=== PATIENT | male | born 1960 ===

== ENCOUNTER 2025-04-17 03:44 | Inpatient (IN) ==
[2025-04-17] MEDS: SODIUM CHLORIDE 0.9% 1,000 ML IV SCH (03:58)
[2025-04-17] MEDS: ALBUT/IPRATROP 3MG/0.5MG NEB 3 ML VIAL NEB STA (03:58)
--- NOTE | 2025-04-17 03:58 | Emergency Department Note ---
Impression & Plan Dyspnea, Hypoxia, Acute exacerbation of chronic obstructive pulmonary disease (COPD), Pneumonia ED Provider Note ED Provider Note NAME: KATELYN PADILLA AGE:65 SEX: Male : 1960 ARRIVES VIA: EMS INFORMANT: Patient ED PROVIDER(s): Ilsa Agrawal DO CHIEF COMPLAINT: shortness of breath HPI: This is a 65-year-old male presents to the emergency department via EMS due to worsening shortness of breath. EMS reports that upon their arrival patient's room air sats were 70% and he was working to breathe. Patient was given a DuoNeb treatment and then an additional albuterol neb. He was given IV Solu- Medrol additionally. He slowly had improvement once he was placed on oxygen via nasal cannula as they titrated up. They state by time of arrival here he was at 91%. They state patient and have been ill for approximately a week. Patient has had a cough, decreased appetite, did have fevers. Patient denies any overt vomiting or diarrhea. States with the coughing he does have intermittent chest pain. Patient states he has had pneumonia previously and this feels similar. PAST MEDICAL HISTORY:See Below PAST SURGICAL HISTORY:See Below FAMILY HISTORY:See Below SOCIAL HISTORY:See Below HOME MEDICATIONS:See Below ALLERGIES:See Below VITALS:See Below PHYSICAL EXAMINATION: GENERAL: alert, unwell appearing, well nourished, no distress, non-toxic EYE EXAM: normal conjunctiva, PERRL and EOM's grossly intact OROPHARYNX: no exudate, no erythema, lips, buccal mucosa, and tongue normal and mucous membranes are dry NECK: supple, no nuchal rigidity, no adenopathy, non-tender LUNGS: Decreased b/l to auscultation. Normal chest wall mechanics, no w/r/r, increased WOB HEART: no murmurs, S1 normal and S2 normal ABDOMEN: abdomen soft, non-tender, normo-active bowel sounds, no masses, no rebound or guarding. SKIN: no rashes, petechiae, orbruising UPPER EXTREMITIES: upper extremities are grossly normal. FROM, nml pulses b/l. LOWER EXTREMITIES: No pitting edema. FROM, nml pulses b/l. NEURO EXAM: Normal sensorium, cranial nerves II-XII grossly intact, normal speech, no facial droop,nogross weakness of arms, no gross weakness of legs. Gross sensation intact. No ataxia. Vital Signs: reviewed and remarkable Differential Diagnosis: pneumonia, bronchitis, COPD/Asthma exacerbation, pneumothorax, pulmonary embolism, congestive heart failure, acute coronary syndrome, as well as others were considered MEDICAL DECISION MAKING: This is a 65-year-old male presents emergency department after 1 week of illness 2 to 3 days of worsening shortness of breath. Patient noted to be significantly hypoxic upon arrival by EMS however was improved here with supplemental oxygen nebulizer treatments. Labs drawn and sent, IV established, EKG and CXR performed and interpreted at bedside, and patient placed on telemetry. Patient continued on supplemental oxygen, was started on gentle IV fluid hydration. After reviewing the chest x-ray, blood cultures, lactic acid, procalcitonin and patient given IV cefepime. Patient was given additional nebulizer treatment here. He was noted to have mild kalemia and hypomagnesemia which were repleted as well. I discussed with patient given extensive history of COPD and concern for multi lobar pneumonia and higher risk of complication, that additional inpatient evaluation and management would be advised. He and at bedside verbalized understanding and agreement. Case discussed with the hospitalist team for further inpatient evaluation. Patient had no fever on arrival here and no significant leukocytosis, was noted to have an elevated procalcitonin, lactic acid reassuring. Nasal swab had been obtained and sent for viral respiratory panel and was ultimately positive for enterovirus/rhinovirus. I suspect this was the illness he and his both initially had which then exacerbated his COPD and eventually led to evolving pneumonia. Consultation(s): 0520: Discussed with DC hospitalist team for additional evaluation and mgmt. ER Treatment Provided: See below Diagnostics Interpreted By Me: -ECG: Sinus tachycardia at 102, normal axis, normal intervals, no acute ST/T wave changes -Cardiac Monitoring: An order was placed for continuous cardiac monitoring. The monitor shows a rate of 96 with normal sinus rhythm. -Laboratory studies: As stated above and show below. -Imaging studies: cxr: b/l lower lobe infiltrates, no cm, no wide mediastinum Triage Nursing Note Reviewed Prior/Outside Records Reviewed Past Med/Surg History Problem List (Updated 04/17/25 @ 06:16 by Maryann Guido DO) Tobacco use disorder Pneumonia (Acute) Acute exacerbation of chronic obstructive pulmonary disease (COPD) (Acute) Hypoxia (Acute) Dyspnea (Acute) Mitral regurgitation Hypercholesterolemia Hypertension Coronary artery calcification seen on CAT scan Social History Smoking Status: Current every day smoker Tobacco Type: Cigarettes Feels Safe at Home: Yes Home Meds Home Medications Medication Instructions Recorded Confirmed baclofen 10 mg tablet 20 mg PO TID 06/03/24 bupropion HCl 150 mg tablet,12 hr 150 mg PO BID 06/03/24 sustained-release calcium carbonate 400 mg PO BID PRN 06/03/24 cyanocobalamin (vitamin B-12) 500 500 mcg PO DAILY 06/03/24 mcg tablet ferrous sulfate 325 mg (65 mg 325 mg PO TID 06/03/24 iron) tablet finasteride 5 mg tablet 5 mg PO DAILY 06/03/24 gabapentin 600 mg tablet 600 mg PO TID 06/03/24 guaifenesin 200 mg tablet 200 mg PO BID 06/03/24 nicotine 21 mg/24 hr daily 1 patch transdermal DAILY 06/03/24 transdermal patch omeprazole 20 mg tablet,delayed 20 mg PO BID 06/03/24 release simvastatin 80 mg tablet 40 mg PO DAILY 06/03/24 tiotropium 2.5 mcg-olodaterol 2.5 2 puff inhalation DAILY 06/03/24 mcg/actuation mist for inhalation Results & Data (ED) Vital Signs Vital Signs - 24 hr 04/17/25 03:37 04/17/25 03:37 04/17/25 03:37 Temperature 36.8 C Temperature Source Oral Pulse Rate 101 H Pulse Rate [Right Finger] Pulse Rhythm Regular Pulse Rhythm [Right Finger] Pulse Strength Normal Pulse Strength [Right Finger] Respiratory Rate 21 Respiratory Effort / Characteristics Spontaneous Non-Labored Spontaneous Respiratory Depth Normal Normal Respiratory Pattern Regular Regular Blood Pressure 138/81 Blood Pressure [Right Arm] Blood Pressure Mean 100 Blood Pressure Mean [Right Arm] Blood Pressure Position Lying Blood Pressure Position [Right Arm] Pulse Oximetry 88 L Oxygen Delivery Method Nasal Cannula Nasal Cannula Nasal Cannula Oxygen Flow Rate 8 8 8 Sepsis Recent Fever Within 48 Hours No Sepsis New/Unexplained Change in Mental Status N/A Sepsis Action Taken by Nursing MD Previously Notified 04/17/25 03:37 04/17/25 03:54 04/17/25 04:01 Temperature Temperature Source Pulse Rate 100 H 99 H Pulse Rate [Right Finger] 101 H Pulse Rhythm Pulse Rhythm [Right Finger] Regular Pulse Strength Pulse Strength [Right Finger] Normal Respiratory Rate 21 20 Respiratory Effort / Characteristics Non-Labored Spontaneous Respiratory Depth Normal Respiratory Pattern Regular Blood Pressure Blood Pressure [Right Arm] Blood Pressure Mean Blood Pressure Mean [Right Arm] Blood Pressure Position Blood Pressure Position [Right Arm] Pulse Oximetry 88 L Oxygen Delivery Method Nasal Cannula Oxygen Flow Rate 8 Sepsis Recent Fever Within 48 Hours Sepsis New/Unexplained Change in Mental Status Sepsis Action Taken by Nursing 04/17/25 05:59 Temperature Temperature Source Pulse Rate Pulse Rate [Right Finger] 97 H Pulse Rhythm Pulse Rhythm [Right Finger] Regular Pulse Strength Pulse Strength [Right Finger] Normal Respiratory Rate 18 Respiratory Effort / Characteristics Non-Labored Spontaneous Respiratory Depth Normal Respiratory Pattern Regular Blood Pressure Blood Pressure [Right Arm] 137/77 Blood Pressure Mean Blood Pressure Mean [Right Arm] 97 Blood Pressure Position Blood Pressure Position [Right Arm] Lying Pulse Oximetry 92 Oxygen Delivery Method Oxymask Oxygen Flow Rate 8 Sepsis Recent Fever Within 48 Hours Sepsis New/Unexplained Change in Mental Status Sepsis Action Taken by Nursing Laboratory Data 04/17/25 03:54 04/17/25 03:54 Lab Results 04/17/25 04/17/25 04/17/25 Range/Units 03:51 03:54 03:59 WBC 5.79 (4.8-10.8) K/ul RBC 3.88 L (4.70-6.10) M/uL Hgb 12.4 L (14.0-18.0) g/dL Hct 35.4 L (42.0-52.0) % MCV 91.2 (80.0-100.0) fL MCH 32.0 (25.0-34.0) pg MCHC 35.0 (32.0-36.0) g/dL RDW Std Deviation 40.4 (36.4-46.3) fL RDW Coeff of Km 12.2 (11.5-14.5) % Plt Count 174 (130-400) K/uL MPV 9.4 (9.4-12.4) fL Immature Gran % (Auto) 0.5 % Neut % (Auto) 91.0 % Lymph % (Auto) 4.8 % [place] % (Auto) 2.8 % Eos % (Auto) 0.0 % Baso % (Auto) 0.9 % Neut # (Auto) 5.27 (1.40-6.50) K/uL Lymph # (Auto) 0.28 L (1.20-3.40) K/uL [place] # (Auto) 0.16 (0.11-0.59) K/uL Eos # (Auto) 0.00 (0.00-0.50) K/uL Baso # (Auto) 0.05 (0.00-0.20) K/uL Immature Gran # (Auto) 0.03 (0.01-0.20) K/uL Toxic Granulation 1+ Dohle Bodies 1+ Echinocytes 2+ VBG pH 7.45 H (7.36-7.41) VBG pCO2 42 (38-50) mmHg VBG pO2 21 mmHg VBG HCO3 29 mmol/L VBG O2 Saturation < 60.0 % VBG Base Excess 4.7 mEq/L Sodium 131 L (136-145) mmol/L Potassium 3.0 L (3.5-5.1) mmol/L Chloride 94 L (98-107) mmol/L Carbon Dioxide 27 (21-32) mmol/L Anion Gap 10 (3-11) BUN 24 H (6-23) mg/dl Creatinine 1.12 (0.6-1.4) mg/dl Est Cr Clr Drug Dosing Not Reportable eGFR 72.00 BUN/Creatinine Ratio 21.4 H (10-20) Glucose 131 H (70-99(Fasting)) mg/dl Lactate (0.4-2.0) mmol/L Calcium 8.4 L (8.6-10.3) mg/dl Magnesium 1.6 L (1.7-2.4) mg/dl Total Bilirubin 1.3 H (0.2-1.0) mg/dl AST 24 (13-39) U/L ALT 15 (7-52) U/L Alkaline Phosphatase 41 (34-104) U/L Troponin I High Sens 15.1 (0-20) pg/ml Total Protein 5.9 L (6.0-8.3) gm/dl Albumin 3.2 L (3.4-5.0) gm/dl Globulin 2.7 (2.5-4.0) gm/dl Albumin/Globulin Ratio 1.2 (0.9-2) Lipase 21 (11-82) U/L Procalcitonin (0-0.5) ng/ml Adenovirus (PCR) Not Detected (NotDetected) B. pertussis DNA (PCR) Not Detected (NotDetected) B.parapertussis DNA PCR Not Detected (NotDetected) C. pneumoniae DNA (PCR) Not Detected (NotDetected) Coronavirus OC43 (PCR) Not Detected (NotDetected) Coronavirus HKU1 (PCR) Not Detected (NotDetected) Coronavirus 229E (PCR) Not Detected (NotDetected) SARS-CoV-2 (PCR) Not Detected (NotDetected) Coronavirus NL63 (PCR) Not Detected (NotDetected) Human Metapneumovir PCR Not Detected (NotDetected) Influenza Type A (PCR) Not Detected (NotDetected) Influenza Type B (PCR) Not Detected (NotDetected) M. pneumoniae (PCR) Not Detected (NotDetected) Parainfluenza 1 (PCR) Not Detected (NotDetected) Parainfluenza 2 (PCR) Not Detected (NotDetected) Parainfluenza 3 (PCR) Not Detected (NotDetected) Parainfluenza 4 (PCR) Not Detected (NotDetected) RSV (PCR) Not Detected (NotDetected) Entero/Rhino (PCR) DETECTED A (NotDetected) 04/17/25 04/17/25 Range/Units 04:21 04:44 WBC (4.8-10.8) K/ul RBC (4.70-6.10) M/uL Hgb (14.0-18.0) g/dL Hct (42.0-52.0) % MCV (80.0-100.0) fL MCH (25.0-34.0) pg MCHC (32.0-36.0) g/dL RDW Std Deviation (36.4-46.3) fL RDW Coeff of Km (11.5-14.5) % Plt Count (130-400) K/uL MPV (9.4-12.4) fL Immature Gran % (Auto) % Neut % (Auto) % Lymph % (Auto) % [place] % (Auto) % Eos % (Auto) % Baso % (Auto) % Neut # (Auto) (1.40-6.50) K/uL Lymph # (Auto) (1.20-3.40) K/uL [place] # (Auto) (0.11-0.59) K/uL Eos # (Auto) (0.00-0.50) K/uL Baso # (Auto) (0.00-0.20) K/uL Immature Gran # (Auto) (0.01-0.20) K/uL Toxic Granulation Dohle Bodies Echinocytes VBG pH (7.36-7.41) VBG pCO2 (38-50) mmHg VBG pO2 mmHg VBG HCO3 mmol/L VBG O2 Saturation % VBG Base Excess mEq/L Sodium (136-145) mmol/L Potassium (3.5-5.1) mmol/L Chloride (98-107) mmol/L Carbon Dioxide (21-32) mmol/L Anion Gap (3-11) BUN (6-23) mg/dl Creatinine (0.6-1.4) mg/dl Est Cr Clr Drug Dosing eGFR BUN/Creatinine Ratio (10-20) Glucose (70-99(Fasting)) mg/dl Lactate 1.6 (0.4-2.0) mmol/L Calcium (8.6-10.3) mg/dl Magnesium (1.7-2.4) mg/dl Total Bilirubin (0.2-1.0) mg/dl AST (13-39) U/L ALT (7-52) U/L Alkaline Phosphatase (34-104) U/L Troponin I High Sens (0-20) pg/ml Total Protein (6.0-8.3) gm/dl Albumin (3.4-5.0) gm/dl Globulin (2.5-4.0) gm/dl Albumin/Globulin Ratio (0.9-2) Lipase (11-82) U/L Procalcitonin 12.40 H (0-0.5) ng/ml Adenovirus (PCR) (NotDetected) B. pertussis DNA (PCR) (NotDetected) B.parapertussis DNA PCR (NotDetected) C. pneumoniae DNA (PCR) (NotDetected) Coronavirus OC43 (PCR) (NotDetected) Coronavirus HKU1 (PCR) (NotDetected) Coronavirus 229E (PCR) (NotDetected) SARS-CoV-2 (PCR) (NotDetected) Coronavirus NL63 (PCR) (NotDetected) Human Metapneumovir PCR (NotDetected) Influenza Type A (PCR) (NotDetected) Influenza Type B (PCR) (NotDetected) M. pneumoniae (PCR) (NotDetected) Parainfluenza 1 (PCR) (NotDetected) Parainfluenza 2 (PCR) (NotDetected) Parainfluenza 3 (PCR) (NotDetected) Parainfluenza 4 (PCR) (NotDetected) RSV (PCR) (NotDetected) Entero/Rhino (PCR) (NotDetected) Administered Medications Sodium Chloride (Nss) 1,000 mls @ 125 mls/hr IV .Q8H SKIP Stop: 04/20/25 03:59 Last Admin: 04/17/25 03:58 Dose: 125 mls/hr Documented By: YANDEL Potassium Chloride (K Asher / Wtr) 10 meq in 100 mls @ 100 mls/hr IV Q1H SKIP Stop: 04/17/25 09:59 Last Admin: 04/17/25 06:12 Dose: 100 mls/hr Documented By: SIDNEY Magnesium Sulfate/Dextrose (Magnesium Sulfate / D5w) 1 gm in 100 mls @ 50 mls/hr IV ONE ONE Stop: 04/17/25 07:54 Last Admin: 04/17/25 06:30 Dose: 50 mls/hr Documented By: SIDNEY Discontinued Medications Acetaminophen (Acetaminophen 325 Mg Tab) 650 mg PO NOW STA Stop: 04/17/25 06:27 Last Admin: 04/17/25 06:47 Dose: Not Given Documented By: SIDNEY Albuterol (Albut/Ipratrop 3mg/0.5mg Neb 3 Ml Vial) 3 ml NEB NOW STA; Protocol Stop: 04/17/25 03:55 Last Admin: 04/17/25 03:58 Dose: 3 ml Documented By: YANDEL Cefepime HCl (Maxipime 2000mg) 2,000 mg in 20 mls @ 5 mls/min IV NOW STA; Protocol Stop: 04/17/25 04:32 Last Admin: 04/17/25 04:53 Dose: 5 mls/min Documented By: SIDNEY Magnesium Sulfate/Dextrose (Magnesium Sulfate / D5w) 1 gm in 100 mls @ 100 mls/hr IV NOW STA Stop: 04/17/25 05:53 Last Admin: 04/17/25 05:19 Dose: 100 mls/hr Documented By: [facility] Methylprednisolone (Methylprednisolone 125 Mg/2 Ml Vial) 125 mg IV NOW STA Stop: 04/17/25 05:56 Last Admin: 04/17/25 06:12 Dose: 125 mg Documented By: [facility] Ondansetron HCl (Ondansetron Inj 2 Mg/Ml 2 Ml Vial) 4 mg IV NOW STA Stop: 04/17/25 06:27 Last Admin: 04/17/25 06:30 Dose: 4 mg Documented By: [facility] Potassium Chloride (Potassium Chloride Crtab 20 Meq Tabcr) 40 meq PO NOW STA Stop: 04/17/25 04:55 Last Admin: 04/17/25 05:48 Dose: Not Given Documented By: [facility] Imaging Data Radiologist's Impression: Chest X-Ray 04/17/25 03:54 EXAM: XR chest 1V portable CLINICAL HISTORY: Dyspnea TECHNIQUE: An X-ray image of the chest is obtained in AP projection. COMPARISON: No prior studies are available for comparison. FINDINGS: Pulmonary Parenchyma: An ill-defined opacity involving the right middle and bilateral lower lung zones. Mildly obscured right costophrenic angle. No evidence of left pleural effusion or pleural thickening. Heart and Mediastinum: Heart size and shape are normal. No mediastinal widening or masses. No hilar or mediastinal lymphadenopathy. Bony Thorax: The bony thorax appears intact without fractures or deformities. Soft Tissues: Soft tissues overlying the chest wall are unremarkable. IMPRESSION: An ill-defined opacity involving the right middle and bilateral lower lung zones, likely secondary to an inflammatory nature. Further clinical correlation is recommended. Mildly obscured right costophrenic angle, likely secondary to tmild effusion. Electronically signed by Stoney Styles 04-17-2025 05:04 AM Discharge Plan Visit Data Chief Complaint: Shortness of Breath/Dyspnea Stated Complaint: SOB ED Provider: Ilsa Agrawal Discharge Problem: Dyspnea, Hypoxia, Acute exacerbation of chronic obstructive pulmonary disease (COPD), Pneumonia Patient Disposition: Being Evaluated by Hospitalist Condition: Fair Forms Stand Alone Forms: [facility] [place] Prescriptions Prescriptions: No Action baclofen 10 mg tablet 20 mg PO TID bupropion HCl 150 mg tablet sustained-release 12 hr 150 mg PO BID calcium carbonate 200 mg calcium (500 mg) tablet,chewable 400 mg PO BID PRN cyanocobalamin (vitamin B-12) 500 mcg tablet 500 mcg PO DAILY ferrous sulfate 325 mg (65 mg iron) tablet 325 mg PO TID finasteride 5 mg tablet 5 mg PO DAILY gabapentin 600 mg tablet 600 mg PO TID guaifenesin 200 mg tablet 200 mg PO BID nicotine 21 mg/24 hr patch 24 hour 1 patch transdermal DAILY omeprazole 20 mg tablet,delayed release (DR/EC) 20 mg PO BID simvastatin 80 mg tablet 40 mg PO DAILY tiotropium-olodaterol 2.5-2.5 mcg/actuation mist 2 puff inhalation DAILY Referrals Referrals: Martine Stacy D.O. [Primary Care Provider] -
[2025-04-17 04:01] LABS: Base Excess VBG 4.7 mEq/L; HCO3 VBG 29 mmol/L; Oxygen Saturation VBG < 60.0 %; PCO2 VBG 42 mmHg (38-50); PO2 VBG 21 mmHg; pH VBG 7.45 (7.36-7.41)
[2025-04-17 04:22] LABS: Alanine Aminotransferase 15 U/L (7-52); Albumin Globulin Ratio 1.2 (0.9-2); Albumin Level 3.2 gm/dl (3.4-5.0); Alkaline Phosphatase 41 U/L (34-104); Anion Gap 10 (3-11); Bilirubin,Total 1.3 mg/dl (0.2-1.0); Blood Urea Nitrogen 24 mg/dl (6-23); Calcium 8.4 mg/dl (8.6-10.3); Carbon Dioxide 27 mmol/L (21-32); Chloride 94 mmol/L (98-107); Globulin 2.7 gm/dl (2.5-4.0); Glucose 131 mg/dl (70-99(Fasting)); Lipase 21 U/L (11-82); Magnesium 1.6 mg/dl (1.7-2.4); Potassium 3.0 mmol/L (3.5-5.1); Sodium 131 mmol/L (136-145); Total Protein 5.9 gm/dl (6.0-8.3)
[2025-04-17 04:36] LABS: Dohle Bodies 1+; Hematocrit (blood only) 35.4 % (42.0-52.0); Hemoglobin 12.4 g/dL (14.0-18.0); Immature Granulocytes # (auto) 0.03 K/uL (0.01-0.20); Immature Granulocytes % (auto) 0.5 %; Mean Corpuscular Hemoglobin 32.0 pg (25.0-34.0); Mean Corpuscular Volume 91.2 fL (80.0-100.0); Platelet Count 174 K/uL (130-400); RDW Standard Deviation 40.4 fL (36.4-46.3); Red Blood Count 3.88 M/uL (4.70-6.10); Toxic Granulation 1+; White Blood Count 5.79 K/ul (4.8-10.8)
[2025-04-17] MEDS: CEFEPIME 2000MG 2,000 MG/20 ML SYR IV STA (04:53)
[2025-04-17 05:01] LABS: Chlamydia pneumoniae PCR Not Detected (NotDetected); Coronavirus 229E PCR Not Detected (NotDetected); Coronavirus CoV-2 (COVID19)PCR Not Detected (NotDetected); Coronavirus HKU1 PCR Not Detected (NotDetected); Coronavirus NL63 PCR Not Detected (NotDetected); Coronavirus OC43PCR Not Detected (NotDetected); Human Metapneumovirus PCR Not Detected (NotDetected); Parainfluenza Virus 1 PCR Not Detected (NotDetected); Parainfluenza Virus 2 PCR Not Detected (NotDetected); Parainfluenza Virus 3 PCR Not Detected (NotDetected); Parainfluenza Virus 4 PCR Not Detected (NotDetected); Respiratory Syncytial VirusPCR Not Detected (NotDetected); Rhinovirus/Enterovirus PCR DETECTED (NotDetected)
--- NOTE | 2025-04-17 05:06 | XRay Report ---
EXAM: XR chest 1V portable CLINICAL HISTORY: Dyspnea TECHNIQUE: An X-ray image of the chest is obtained in AP projection. COMPARISON: No prior studies are available for comparison. FINDINGS: Pulmonary Parenchyma: An ill-defined opacity involving the right middle and bilateral lower lung zones. Mildly obscured right costophrenic angle. No evidence of left pleural effusion or pleural thickening. Heart and Mediastinum: Heart size and shape are normal. No mediastinal widening or masses. No hilar or mediastinal lymphadenopathy. Bony Thorax: The bony thorax appears intact without fractures or deformities. Soft Tissues: Soft tissues overlying the chest wall are unremarkable. IMPRESSION: An ill-defined opacity involving the right middle and bilateral lower lung zones, likely secondary to an inflammatory nature. Further clinical correlation is recommended. Mildly obscured right costophrenic angle, likely secondary to tmild effusion. Electronically signed by Stoney Styles 04-17-2025 05:04 AM
[2025-04-17] MEDS: MAGNESIUM SULFATE / D5W 1 GM/100 ML BAG IV STA (05:19)
--- NOTE | 2025-04-17 05:36 | History & Physical Report ---
Date of Service April 17, 2025 Assessment & Plan (1) Acute exacerbation of chronic obstructive pulmonary disease (COPD): (2) Pneumonia: (3) Hypertension: (4) Tobacco use disorder: Plan Pt is a 65 yo male with a past med hx of COPD not on oxygen at baseline, YASIR (per records, not on CPAP), HTN and CAD who presents to the hospital on 04/17 for AHRF in the setting of 1 week of illness and COPD exac. #AHRF in the setting of pneumonia + Rhinovirus + likely COPD exac - CXR; "An ill-defined opacity involving the right middle and bilateral lower lung zones, likely secondary to an inflammatory nature. Further clinical correlation is recommended. Mildly obscured right costophrenic angle, likely secondary to tmild effusion." - hx COPD noted - biofire + for rhinovirus - procal 12 on admission, no white count - blood cx pending - duonebs lonny q6h - will tx pna with zosyn and azithromycin (given cefepime in the ED) - loaded with solumedrol 125mg IV, continue as solumedrol 40mg IV BID #Hypokalemia - will replete IV given desats off the oxymask on admission, 40mg IV given initially - mag repleted 2gm IV also - consider further repletion after K-riders finished #Chest pain #Hx CAD - continue statin - chest pain is pleuritic and he has been coughing a lot, R lower intercostals main area of pain - EKG ordered - initial trop negative (15), repeat pending - tylenol for pain #Tobacco dependence - normally smokes 2 ppd, down to 1/2 ppd this past week - will give nicotine patch Hold gabapentin as this may be sedating. Will continue chronic medications o therwise. Diet; NPO for now given desaturations while off the mask and potential for escalation to bipap VTE ppx: lovenox SQ History of Present Illness Chief Complaint: AHRF, COPD exac Primary Care Provider: Martine León Pt is a 65 yo male with a past med hx of COPD not on oxygen at baseline, YASIR (per records, not on CPAP), HTN and CAD who presents to the hospital on 04/17 for AHRF in the setting of 1 week of illness and COPD exac. Pt here with his . Pt fatigued appearing but awake and alert. He states he got sick 1 week ago. His was sick first and then he got sick afterwards. He states it started with cough, congestion with rhinorrhea, nausea, diarrhea, and shortness of breath. Pt states he had a similar episode as today about 1 year ago, which was less severe and he was treated outpatient by the [facility] for pneumo sukhdev. His states when he was sleeping tonight he was making noises "like a dog was upchucking" and so she told him he needed to come to the hospital and get evaluated and called 911. Pt states that he has some pain between his lower ribs which is worse with deep breaths. Last episode of diarrhea was >24 hrs ago. SOB has improved some with therapies given in the ED. No hx PR or CVA per pt. No alcohol or drug use. He does smoke 2 ppd but the last 1 week as he has been sick he has cut back to 1/2 ppd. Allergies Allergy/AdvReac Type Severity Reaction Status Date / Time No Known Allergies Allergy Unverified 04/17/25 09:12 Home Medications Medication Instructions Recorded Confirmed Type baclofen 10 mg tablet 20 mg PO TID 06/03/24 History bupropion HCl 150 mg tablet,12 hr 150 mg PO BID 06/03/24 History sustained-release calcium carbonate 400 mg PO BID PRN 06/03/24 History cyanocobalamin (vitamin B-12) 500 500 mcg PO DAILY 06/03/24 History mcg tablet ferrous sulfate 325 mg (65 mg 325 mg PO TID 06/03/24 History iron) tablet finasteride 5 mg tablet 5 mg PO DAILY 06/03/24 History gabapentin 600 mg tablet 600 mg PO TID 06/03/24 History guaifenesin 200 mg tablet 200 mg PO BID 06/03/24 History nicotine 21 mg/24 hr daily 1 patch transdermal DAILY 06/03/24 History transdermal patch omeprazole 20 mg tablet,delayed 20 mg PO BID 06/03/24 History release simvastatin 80 mg tablet 40 mg PO DAILY 06/03/24 History tiotropium 2.5 mcg-olodaterol 2.5 2 puff inhalation DAILY 06/03/24 History mcg/actuation mist for inhalation Past Med/Surg History Problem List (Updated 04/17/25 @ 06:16 by Maryann Guido DO) Tobacco use disorder Pneumonia (Acute) Acute exacerbation of chronic obstructive pulmonary disease (COPD) (Acute) Hypoxia (Acute) Dyspnea (Acute) Mitral regurgitation Hypercholesterolemia Hypertension Coronary artery calcification seen on CAT scan Social History Smoking Status: Current every day smoker Tobacco Type: Cigarettes Cigarettes Per Day: 1 pack per day; Hx Alcohol Use: No Hx Substance Use: No Preferred Language: Mongolian [employer] Machine Operator Required: No Beliefs That Will Affect Care: None Current Living Situation: Spouse Other Information That Helps Us Care for You: No Feels Safe at Home: Yes Safety Concerns: Feels Safe At This Time Review of Systems Review of Systems: Per HPI. Physical Exam Physical Exam: General: Alert and oriented, fatigued appearing with increased resp effort HEENT: Normocephalic, Cardio: Heart rate in the 90-100s at time of exam, Resp: Quite poor air movement in bilateral lungs with lower lobe crackles, particularly on the R side GI: Soft and nontender, nondistended, Skin: Warm, pink, dry, Results & Data Results & Data Vital Signs (Past 12 Hours) Vital Signs Temp Pulse Pulse Resp BP Pulse Ox O2 Del Method 04/17/25 04:01 99 H 04/17/25 03:54 100 H 20 88 L Nasal Cannula 04/17/25 03:37 101 H 21 04/17/25 03:37 Nasal Cannula 04/17/25 03:37 36.8 C 101 H 21 138/81 88 L Nasal Cannula 04/17/25 03:37 Nasal Cannula O2 Flow Rate 04/17/25 04:01 04/17/25 03:54 8 04/17/25 03:37 04/17/25 03:37 8 04/17/25 03:37 8 04/17/25 03:37 8 Supervising Physician Co-Signing Physician Notes Attending addendum: I have physically seen this patient, have supervised the medical residents activities, and agree with the H&P unless as otherwise noted. Assessment and Plan: The patient is a 65-year-old male with past medical history including COPD, YASIR not on CPAP, hypertension, and CAD. He presents to the hospital on 04/17 with shortness of breath, dyspnea on exertion, found to be significantly hypoxic in the emergency department, requiring 8 L nasal cannula oxygen to reach pulse ox of 88%. Respiratory bio fire test positive for rhinovirus. In the ED patient received follow-up: Normal saline at 125 mL/h, magnesium 1 g IV, DuoNeb x 1, cefepime 2 g IV, Klor-Con 40 mEq p.o. Acute respiratory failure with hypoxia/COPD exacerbation/pneumonia/rhinovirus infection- Bio Twonq test positive for rhinovirus Duonebs every 4 hours while awake and every 2 hours when necessary. Zosyn 4.5 g IV every 8 hours Azithromycin 5 mg IV every 24 hours Solu-Medrol 125 mg IV now, 40 mg IV twice daily Follow-up sputum Gram stain culture Presently on nasal cannula 8 L to reach pulse ox of 88% Taper oxygen as symptoms improve Hypokalemia/hypomagnesemia- Potassium 3.0, magnesium 1.6 Magnesium sulfate 2 g IV, potassium chloride 40 mEq IV Recheck laboratories in a.m. CAD/hypertension/mitral regurgitation/hyperlipidemia- Continue simvastatin Initial troponin negative The patient will be admitted to telemetry for serial cardiac enzymes, serial EKG's, cardiac rhythm monitoring and a 2-D echocardiogram with Dopplers. Tobacco dependence- Continue patch Cessation Counseling Psychiatric- Continue bupropion Hold gabapentin Resident Activity Tracking Resident Involvement: Resident Care Provided Care Provided: Adult Hospital Medicine
[2025-04-17] MEDS: POTASSIUM CHLORIDE CRTAB 20 MEQ TABCR PO STA (05:48)
[2025-04-17] MEDS: POTASSIUM CHLORIDE / WTR 10 MEQ/100 ML PLCT IV SCH (06:12)
[2025-04-17] MEDS: MAGNESIUM SULFATE / D5W 1 GM/100 ML BAG IV ONE (06:30)
[2025-04-17] MEDS: ONDANSETRON INJ 2 MG/ML 2 ML VIAL IV STA (06:30)
[2025-04-17] MEDS: ACETAMINOPHEN 325 MG TAB PO STA (06:47)
[2025-04-17] MEDS ORDERED: POLYETHYLENE (MIRALAX) 17 GM PACK PO PRN (08:25)
[2025-04-17] MEDS ORDERED: ONDANSETRON INJ 2 MG/ML 2 ML VIAL IV PRN (08:25)
[2025-04-17] MEDS: ALBUT/IPRATROP 3MG/0.5MG NEB 3 ML VIAL INH SCH (09:31)
[2025-04-17] MEDS: AZITHROMYCIN 250 MG TAB PO SCH (10:03)
[2025-04-17] MEDS: NICOTINE 21 MG/24 HR TDSY TD SCH (10:03)
[2025-04-17] MEDS: SIMVASTATIN 40 MG TAB PO SCH (10:03)
[2025-04-17] MEDS: ENOXAPARIN INJ 40 MG/0.4 ML SYR SQ SCH (10:04)
[2025-04-17] MEDS: PIPERACILLIN/TAZOBACTAM 4.5 GM/100 ML BAG IV SCH (10:37)
--- NOTE | 2025-04-17 13:19 | History & Physical Report ---
Date of Service April 17, 2025 Assessment & Plan Admission and Anticipated Discharge Date Admission Date: April 17, 2025 History of Present Illness Primary Care Provider: Martine León Allergies Allergy/AdvReac Type Severity Reaction Status Date / Time No Known Allergies Allergy Unverified 04/17/25 09:12 Home Medications Medication Instructions Recorded Confirmed Type baclofen 10 mg tablet 20 mg PO TID 06/03/24 History bupropion HCl 150 mg tablet,12 hr 150 mg PO BID 06/03/24 History sustained-release calcium carbonate 400 mg PO BID PRN 06/03/24 History cyanocobalamin (vitamin B-12) 500 500 mcg PO DAILY 06/03/24 History mcg tablet ferrous sulfate 325 mg (65 mg 325 mg PO TID 06/03/24 History iron) tablet finasteride 5 mg tablet 5 mg PO DAILY 06/03/24 History gabapentin 600 mg tablet 600 mg PO TID 06/03/24 History guaifenesin 200 mg tablet 200 mg PO BID 06/03/24 History nicotine 21 mg/24 hr daily 1 patch transdermal DAILY 06/03/24 History transdermal patch omeprazole 20 mg tablet,delayed 20 mg PO BID 06/03/24 History release simvastatin 80 mg tablet 40 mg PO DAILY 06/03/24 History tiotropium 2.5 mcg-olodaterol 2.5 2 puff inhalation DAILY 06/03/24 History mcg/actuation mist for inhalation Past Med/Surg History Problem List (Updated 04/17/25 @ 06:16 by Maryann Guido DO) Tobacco use disorder Pneumonia (Acute) Acute exacerbation of chronic obstructive pulmonary disease (COPD) (Acute) Hypoxia (Acute) Dyspnea (Acute) Mitral regurgitation Hypercholesterolemia Hypertension Coronary artery calcification seen on CAT scan Social History Smoking Status: Current every day smoker Tobacco Type: Cigarettes Feels Safe at Home: Yes Results & Data Results & Data Vital Signs (Past 12 Hours) Vital Signs Temp Pulse Pulse Resp BP BP Pulse Ox 04/17/25 12:11 89 20 94 04/17/25 12:02 88 19 119/64 96 04/17/25 10:00 90 23 139/80 94 04/17/25 09:00 94 H 22 131/76 92 04/17/25 08:04 92 H 04/17/25 08:00 93 H 16 135/77 94 04/17/25 07:42 94 H 23 113/86 94 04/17/25 05:59 97 H 18 137/77 92 04/17/25 04:01 99 H 04/17/25 03:54 100 H 20 88 L 04/17/25 03:37 101 H 21 04/17/25 03:37 04/17/25 03:37 36.8 C 101 H 21 138/81 88 L 04/17/25 03:37 O2 Del Method O2 Flow Rate 04/17/25 12:11 Oxymask 7 04/17/25 12:02 Oxymask 8 04/17/25 10:00 Oxymask 8 04/17/25 09:00 Oxymask 8 04/17/25 08:04 04/17/25 08:00 Oxymask 8 04/17/25 07:42 Oxymask 8 04/17/25 05:59 Oxymask 8 04/17/25 04:01 04/17/25 03:54 Nasal Cannula 8 04/17/25 03:37 04/17/25 03:37 Nasal Cannula 8 04/17/25 03:37 Nasal Cannula 8 04/17/25 03:37 Nasal Cannula 8 Code Status & VTE Plan VTE Prophylaxis Plan VTE Prophylaxis will be ordered: Yes PG Care Time/CCT Total # of Minutes Spent Total Time Spent with Patient: Total time spent is greater than 50% in coordination of care (as documented) at patient's floor/unit and/or counseling patient: Coding
--- NOTE | 2025-04-17 14:28 | Electrocardiogram Report ---
Test Reason : Blood Pressure : */* mmHG Vent. Rate : 102 BPM Atrial Rate : 102 BPM P-R Int : 114 ms QRS Dur : 92 ms QT Int : 346 ms P-R-T Axes : 38 41 59 degrees QTcB Int : 450 ms Sinus tachycardia with Premature atrial complexes Otherwise normal ECG No previous ECGs available Confirmed by Naif Prakash ([id number]) on 04/17/2025 2:28:26 PM Referred By: REFERRED SELF Confirmed By: Naif Prakash
[2025-04-17] MEDS ORDERED: INFLUENZA VACC TS2025-26(65y+)/PF (IIV3) 0.5mL Syr IM ONE (14:33)
--- NOTE | 2025-04-17 14:36 | Electrocardiogram Report ---
Test Reason : Blood Pressure : */* mmHG Vent. Rate : 93 BPM Atrial Rate : 93 BPM P-R Int : 118 ms QRS Dur : 90 ms QT Int : 368 ms P-R-T Axes : 63 60 62 degrees QTcB Int : 457 ms Normal sinus rhythm When compared with ECG of 17-Apr-2025 03:54, (unconfirmed) Premature atrial complexes are no longer Present Confirmed by Naif Prakash ([id number]) on 04/17/2025 2:36:31 PM Referred By: REFERRED SELF Confirmed By: Naif Prakash
[2025-04-17 16:05] LABS: Appearance Urine Clear (Clear); Glucose Urine UA Negative (Negative); WBC Urine Automated 0-5 /hpf (0-5)
[2025-04-17 16:19] LABS: RBC Urine Automated 0-2 /hpf (0-2)
[2025-04-17 16:20] LABS: Bacteria Urine Automated 2+ (None Seen)
[2025-04-17] MEDS: ACETAMINOPHEN 325 MG TAB PO PRN (21:06)
--- NOTE | 2025-04-18 00:53 | Billing Data ---
Date of Service April 18, 2025 Coding Level of Care Code 09118 INT INP/OBS CARE
[2025-04-18 05:00] LABS: Hematocrit (blood only) 32.5 % (42.0-52.0); Hemoglobin 11.7 g/dL (14.0-18.0); Mean Corpuscular Hemoglobin 32.2 pg (25.0-34.0); Mean Corpuscular Volume 89.5 fL (80.0-100.0); Platelet Count 180 K/uL (130-400); RDW Standard Deviation 40.4 fL (36.4-46.3); Red Blood Count 3.63 M/uL (4.70-6.10); White Blood Count 9.65 K/ul (4.8-10.8)
[2025-04-18 05:13] LABS: Anion Gap 9.0 (3-11); Blood Urea Nitrogen 23.0 mg/dl (6-23); Calcium 8.2 mg/dl (8.6-10.3); Carbon Dioxide 24.0 mmol/L (21-32); Chloride 99.0 mmol/L (98-107); Creatinine Clr Calc Pharmacy 61.1 ml/min; Glucose 126.0 mg/dl (70-99(Fasting)); Potassium 3.0 mmol/L (3.5-5.1); Sodium 132.0 mmol/L (136-145)
[2025-04-18 05:26] LABS: Immature Granulocytes # (auto) 0.05 K/uL (0.01-0.20); Immature Granulocytes % (auto) 0.5 %; Polychromasia 1+; Toxic Granulation 1+; Toxic Vacuolation 1+
[2025-04-18] MEDS: REMOVE NICODERM PATCH SCH (09:30)
[2025-04-18] MEDS: POTASSIUM CHLORIDE CRTAB 20 MEQ TABCR PO STA (10:56)
--- NOTE | 2025-04-18 23:50 | Hospitalist Progress Note ---
Date of Service April 18, 2025 Assessment & Plan (1) Acute exacerbation of chronic obstructive pulmonary disease (COPD): (2) Pneumonia: (3) Hypertension: (4) Tobacco use disorder: Plan Pt is a 65 yo male with a past med hx of COPD not on oxygen at baseline, YASIR (per records, not on CPAP), HTN and CAD who presents to the hospital on 04/17 for AHRF in the setting of 1 week of illness and COPD exac. #AHRF in the setting of pneumonia + Rhinovirus + likely COPD exac - CXR; "An ill-defined opacity involving the right middle and bilateral lower lung zones, likely secondary to an inflammatory nature. Further clinical correlation is recommended. Mildly obscured right costophrenic angle, likely secondary to tmild effusion." - hx COPD noted - biofire + for rhinovirus - procal 12 on admission, no white count - duonebs lonny q6h - will tx pna with zosyn and azithromycin (given cefepime in the ED) - loaded with solumedrol 125mg IV, continue as solumedrol 40mg IV BID, will monitor crp. -CRP 29, will continue corticosteroids #Hypokalemia - replaced on 04/18 #Chest pain #Hx CAD - continue statin - chest pain is pleuritic and he has been coughing a lot, R lower intercostals main area of pain - EKG ordered - initial trop negative (15), repeat pending - tylenol for pain #Tobacco dependence - normally smokes 2 ppd, down to 1/2 ppd this past week - will give nicotine patch Hold gabapentin as this may be sedating. Will continue chronic medications otherwise. VTE ppx: lovenox SQ Admission and Anticipated Discharge Date Admission Date: April 17, 2025 Subjective Patient reports no new chane in his symptoms. Nurse reports he was able to cough up some sputum today, and his O2 requirements improved to 2 liters nasal cannula. Physical Exam Physical Exam: General: Alert and oriented, fatigued appearing with increased resp effort HEENT: Normocephalic, Cardio: Heart rate in the 90-100s at time of exam, Resp: Quite poor air movement in bilateral lungs with lower lobe crackles, particularly on the R side GI: Soft and nontender, nondistended, Skin: Warm, pink, dry, Results & Data Results & Data Vital Signs (Past 12 Hours) Vital Signs Temp Pulse Pulse Resp BP Pulse Ox O2 Del Method 04/18/25 22:28 37.0 C 99 H 18 143/80 H 91 Oxymask 04/18/25 20:20 89 22 93 Oxymask 04/18/25 20:00 Oxymask 04/18/25 20:00 Oxymask 04/18/25 19:22 36.8 C 80 24 128/59 L 95 Oxymask 04/18/25 15:20 89 04/18/25 14:44 37.2 C 90 25 H 135/78 92 Nasal Cannula 04/18/25 13:35 84 17 92 Oxymask O2 Flow Rate 04/18/25 22:28 04/18/25 20:20 6 04/18/25 20:00 04/18/25 20:00 5 04/18/25 19:22 04/18/25 15:20 04/18/25 14:44 4 04/18/25 13:35 4 PG Care Time/CCT Total # of Minutes Spent Total Time Spent with Patient: Total time spent is greater than 50% in coordination of care (as documented) at patient's floor/unit and/or counseling patient: Coding Level of Care Code 49009 SUB INP/OBS CARE 3/50MIN Diagnoses Acute exacerbation of chronic obstructive pulmonary disease (COPD) J44.1 Pneumonia J18.9 Hypertension I10 Tobacco use disorder F17.200
--- NOTE | 2025-04-19 07:24 | Hospitalist Progress Note ---
Date of Service April 19, 2025 Assessment & Plan (1) Acute exacerbation of chronic obstructive pulmonary disease (COPD): (2) Pneumonia: (3) Hypertension: (4) Tobacco use disorder: Plan Pt is a 65 yo male with a past med hx of COPD not on oxygen at baseline, YASIR (per records, not on CPAP), HTN and CAD who presents to the hospital on 04/17 for AHRF in the setting of 1 week of illness and COPD exac. #AHRF in the setting of pneumonia + Rhinovirus + likely COPD exac Patient presented with progressively productive cough, dyspnea at rest and on exertion, tachypnea, found to have focal crackles; initial procalcitonin 12, delayed leukocytosis with rise on 04/19; blood cultures without growth; radiographic improvement with interval chest x-ray on 04/19; Shorr score 0 Activity as tolerated Incentive spirometry and flutter valve every hour while awake Start chest physiotherapy for assistance with expectoration Maintain oxygen saturation greater than 90% Continue Zosyn and azithromycin for 5 and 3 days respectively Follow daily CBC with manual differential, renal function panel #Hypokalemia - replaced on 04/18 #Costochondritis - continue statin - chest pain is pleuritic and he has been coughing a lot, R lower intercostals main area of pain - tylenol for pain #Tobacco dependence - normally smokes 2 ppd, down to 1/2 ppd this past week - will give nicotine patch Hold gabapentin as this may be sedating. Will continue chronic medications otherwise. VTE ppx: lovenox SQ Admission and Anticipated Discharge Date Admission Date: April 17, 2025 Subjective No acute overnight events; continues to have productive cough without hemoptysis or purulent sputum. Overall feels improved, though gradually so. Review of Systems Review of Systems: Review of constitutional, cardiovascular, pulmonary, gastrointestinal, genitourinary systems was unremarkable except for pertinent positive and negative findings discussed above Physical Exam Physical Exam: General: Adult male in no acute distress, appears older than true age Vital Signs: Reviewed; requiring 6 L by nasal cannula to maintain O2 saturation greater than 90% HEENT: Tacky mucous membranes; chronically poor dentition with chronic gingivitis Neck: Midline trachea Pulmonary: Symmetric chest wall excursion without restriction; diminished air movement in the bases bilaterally with scattered mid to end phase expiratory wheezing Cardiovascular: Regular rate and rhythm without murmurs, rubs, or gallops; S1 and S2 normal; right radial pulse 2+; no notable lower extremity edema Gastrointestinal: Soft, nontender Musculoskeletal: Generalized anasarca, no evidence of sarcopenia nor cachexia Neurologic: Cranial nerves II through XII grossly intact; no discernible focal weakness nor paresthesia Results & Data Results & Data Vital Signs (Past 12 Hours) Vital Signs Temp Pulse Pulse Resp BP Pulse Ox O2 Del Method 04/19/25 07:10 93 H 26 H 93 Oxymask 04/19/25 03:42 87 L Oxymask 04/19/25 02:54 36.8 C 92 H 24 144/75 H 90 Oxymask 04/19/25 00:36 90 22 93 Oxymask 04/18/25 22:28 37.0 C 99 H 18 143/80 H 91 Oxymask 04/18/25 22:00 87 04/18/25 20:20 89 22 93 Oxymask 04/18/25 20:00 Oxymask 04/18/25 20:00 Oxymask O2 Flow Rate 04/19/25 07:10 9 04/19/25 03:42 5 04/19/25 02:54 04/19/25 00:36 6 04/18/25 22:28 04/18/25 22:00 04/18/25 20:20 6 04/18/25 20:00 04/18/25 20:00 5 Laboratory Results Leukocytosis 16.63 from 9.65 Urinalysis remarkable for urine protein, ketones, blood with hyaline casts and bacteria noted on microscopy with a moderate amount of epithelial cells Diagnostic Findings Improvement of radiographic findings from initial admission with respect to their presenting pneumonia PG Care Time/CCT Total # of Minutes Spent Total Time Spent with Patient: Total time spent is greater than 50% in coordination of care (as documented) at patient's floor/unit and/or counseling patient: Coding Level of Care Code 42630 SUB INP/OBS CARE 2/35MIN Diagnoses Acute exacerbation of chronic obstructive pulmonary disease (COPD) J44.1 Pneumonia J18.9 Hypertension I10 Tobacco use disorder F17.200
--- NOTE | 2025-04-19 08:44 | XRay Report ---
XR chest 2V PA/lateral CLINICAL HISTORY: Reassess admission findings COMPARISON STUDY: Chest radiograph April 17, 2025. FINDINGS: There is no pneumothorax. Small bilateral pleural effusions are noted. There has been signi ficant improvement in bilateral lower lung airspace opacity since chest radiograph of April 17. There are moderate residual opacities. These include a 3.2 cm right lower lung rounded nodular op acity. There is suspected underlying emphysema. Cardiomediastinal silhouette is unremarkable. IMPRESSION: 1. Significant interval improvement in bilateral airspace opacities since chest radiograph of [facility] r 2024. The radiographic appearance favors improving pneumonia however improving pulmonary edema could appear similar given rapid improvement. 2. Moderate residual opacities, including a 3.2 cm right lower lung opacity. This favors residual pne umonia however an underlying lesion cannot be excluded and therefore continued imaging follow up to e nsure resolution is recommended. 3. Small bilateral pleural effusions. ACT 112: Negative or not required by law. Electronically signed by: Roberto Villatoro M.D. 04/19/2025 8:41 AM
[2025-04-19 11:04] LABS: Hematocrit (blood only) 36.5 % (42.0-52.0); Hemoglobin 12.7 g/dL (14.0-18.0); Mean Corpuscular Hemoglobin 31.8 pg (25.0-34.0); Mean Corpuscular Volume 91.5 fL (80.0-100.0); Platelet Count 247 K/uL (130-400); RDW Standard Deviation 42.3 fL (36.4-46.3); Red Blood Count 3.99 M/uL (4.70-6.10); White Blood Count 16.63 K/ul (4.8-10.8)
[2025-04-19 11:22] LABS: Anion Gap 11.0 (3-11); Blood Urea Nitrogen 23.0 mg/dl (6-23); Calcium 9.0 mg/dl (8.6-10.3); Carbon Dioxide 29.0 mmol/L (21-32); Chloride 98.0 mmol/L (98-107); Creatinine Clr Calc Pharmacy 57.8 ml/min; Glucose 114.0 mg/dl (70-99(Fasting)); Potassium 3.7 mmol/L (3.5-5.1); Sodium 138.0 mmol/L (136-145)
[2025-04-19 11:31] LABS: Immature Granulocytes # (auto) 0.22 K/uL (0.01-0.20); Immature Granulocytes % (auto) 1.3 %; Polychromasia 1+; Toxic Granulation 1+
--- NOTE | 2025-04-20 07:09 | Hospitalist Progress Note ---
Date of Service April 20, 2025 Assessment & Plan (1) Acute exacerbation of chronic obstructive pulmonary disease (COPD): (2) Pneumonia: (3) Hypertension: (4) Tobacco use disorder: Plan Pt is a 65 yo male with a past med hx of COPD not on oxygen at baseline, YASIR (per records, not on CPAP), HTN and CAD who presents to the hospital on 04/17 for AHRF in the setting of 1 week of illness and COPD exac. #AHRF in the setting of pneumonia + Rhinovirus + likely COPD exac Patient presented with progressively productive cough, dyspnea at rest and on exertion, tachypnea, found to have focal crackles; initial procalcitonin 12, delayed leukocytosis with rise on 04/19; blood cultures without growth; radiographic improvement with interval chest x-ray on 04/19; Shorr score 0 Activity as tolerated Incentive spirometry and flutter valve every hour while awake Continue chest physiotherapy for assistance with expectoration Maintain oxygen saturation greater than 90% Continue Zosyn and azithromycin for 5 and 3 days respectively Follow daily CBC with manual differential, renal function panel #Hypokalemia - Additional replacement on 04/20 #Costochondritis - continue statin - chest pain is pleuritic and he has been coughing a lot, R lower intercostals main area of pain - tylenol for pain #Tobacco dependence - normally smokes 2 ppd, down to 1/2 ppd this past week - will give nicotine patch Hold gabapentin as this may be sedating. Will continue chronic medications otherwise. VTE ppx: lovenox SQ Admission and Anticipated Discharge Date Admission Date: April 17, 2025 Subjective No acute overnight events; continues to have productive cough, mechanical cough assist has greatly improved his clearance of secretions. Continues to feel improved. Review of Systems Review of Systems: Review of constitutional, cardiovascular, pulmonary, gastrointestinal, genitourinary systems was unremarkable except for pertinent positive and negative findings discussed above Physical Exam Physical Exam: General: Adult male in no acute distress, appears older than true age Vital Signs: Reviewed; requiring 4 L by nasal cannula to maintain O2 saturation greater than 90% HEENT: Tacky mucous membranes; chronically poor dentition with chronic gingivitis Neck: Midline trachea Pulmonary: Symmetric chest wall excursion without restriction; improved air movement in the bases bilaterally, diffuse rhonchi predominantly in the posterior lobes; crackles noted in the bases bilaterally; no wheezing, though occasional upper airway sounds are noted Cardiovascular: Regular rate and rhythm without murmurs, rubs, or gallops; S1 and S2 normal; right radial pulse 2+; no notable lower extremity edema Gastrointestinal: Soft, nontender Musculoskeletal: Generalized anasarca, no evidence of sarcopenia nor cachexia Neurologic: Cranial nerves II through XII grossly intact; no discernible focal weakness nor paresthesia Results & Data Results & Data Vital Signs (Past 12 Hours) Vital Signs Temp Pulse Pulse Resp BP BP Pulse Ox 04/20/25 07:02 92 H 18 93 04/20/25 04:42 36.5 C 87 20 155/93 H 94 04/20/25 01:55 85 16 92 04/19/25 23:14 37.1 C 81 19 149/73 H 95 04/19/25 21:54 100 H 04/19/25 20:20 80 15 97 04/19/25 20:12 37.1 C 82 20 146/84 H 96 04/19/25 19:15 O2 Del Method O2 Flow Rate 04/20/25 07:02 Nasal Cannula 3 04/20/25 04:42 Nasal Cannula 4 04/20/25 01:55 Nasal Cannula 3 04/19/25 23:14 Nasal Cannula 4 04/19/25 21:54 04/19/25 20:20 Nasal Cannula 4 04/19/25 20:12 Nasal Cannula 4 04/19/25 19:15 Nasal Cannula, Oxymask 4 Laboratory Results Downtrending leukocytosis 12.6 (15) Serum potassium 3.2 PG Care Time/CCT Total # of Minutes Spent Total Time Spent with Patient: Total time spent is greater than 50% in coordination of care (as documented) at patient's floor/unit and/or counseling patient: Coding Level of Care Code 83081 SUB INP/OBS CARE 2MIN Diagnoses Acute exacerbation of chronic obstructive pulmonary disease (COPD) J44.1 Pneumonia of right middle lobe due to infectious organism J18.9 Pneumonia type: due to unspecified organism Laterality: right Lung location: middle lobe of lung Primary hypertension I10 Hypertension type: primary hypertension Tobacco use disorder F17.200 (2) Pneumonia Pneumonia type: due to unspecified organism Laterality: right Lung location: middle lobe of lung Qualified Code(s): J18.9 - Pneumonia, unspecified organism (3) Hypertension Hypertension type: primary hypertension Qualified Code(s): I10 - Essential (primary) hypertension
[2025-04-20 07:20] LABS: Hematocrit (blood only) 32.1 % (42.0-52.0); Hemoglobin 11.4 g/dL (14.0-18.0); Immature Granulocytes # (auto) 0.24 K/uL (0.01-0.20); Immature Granulocytes % (auto) 2.1 %; Mean Corpuscular Hemoglobin 32.2 pg (25.0-34.0); Mean Corpuscular Volume 90.7 fL (80.0-100.0); Platelet Count 227 K/uL (130-400); RDW Standard Deviation 42.5 fL (36.4-46.3); Red Blood Count 3.54 M/uL (4.70-6.10); White Blood Count 11.30 K/ul (4.8-10.8)
[2025-04-20 07:37] LABS: Anion Gap 8.0 (3-11); Blood Urea Nitrogen 20.0 mg/dl (6-23); Calcium 8.4 mg/dl (8.6-10.3); Carbon Dioxide 31.0 mmol/L (21-32); Chloride 99.0 mmol/L (98-107); Creatinine Clr Calc Pharmacy 66.2 ml/min; Glucose 106.0 mg/dl (70-99(Fasting)); Potassium 3.2 mmol/L (3.5-5.1); Sodium 138.0 mmol/L (136-145)
[2025-04-20] MEDS: predniSONE 20 MG TAB PO SCH (08:28)
[2025-04-20] MEDS: POTASSIUM CHLORIDE CRTAB 20 MEQ TABCR PO SCH (09:49)
[2025-04-20] MEDS: MELATONIN 3 MG TAB PO PRN (20:43)
[2025-04-21 07:13] LABS: Hematocrit (blood only) 33.0 % (42.0-52.0); Hemoglobin 11.7 g/dL (14.0-18.0); Mean Corpuscular Hemoglobin 32.1 pg (25.0-34.0); Mean Corpuscular Volume 90.7 fL (80.0-100.0); Platelet Count 281 K/uL (130-400); RDW Standard Deviation 43.1 fL (36.4-46.3); Red Blood Count 3.64 M/uL (4.70-6.10); White Blood Count 14.37 K/ul (4.8-10.8)
[2025-04-21 07:51] LABS: Albumin Level 3.2 gm/dl (3.4-5.0); Anion Gap 8.0 (3-11); Blood Urea Nitrogen 17.0 mg/dl (6-23); Calcium 8.4 mg/dl (8.6-10.3); Carbon Dioxide 29.0 mmol/L (21-32); Chloride 102.0 mmol/L (98-107); Creatinine Clr Calc Pharmacy 65.5 ml/min; Glucose 112.0 mg/dl (70-99(Fasting)); Magnesium 1.7 mg/dl (1.7-2.4); Potassium 3.7 mmol/L (3.5-5.1); Sodium 139.0 mmol/L (136-145)
--- NOTE | 2025-04-21 11:34 | Hospitalist Progress Note ---
Date of Service April 21, 2025 Assessment & Plan (1) Acute exacerbation of chronic obstructive pulmonary disease (COPD): (2) Pneumonia: (3) Hypertension: (4) Tobacco use disorder: Plan Pt is a 65 yo male with a past med hx of COPD not on oxygen at baseline, YASIR (per records, not on CPAP), HTN and CAD who presents to the hospital on 04/17 for AHRF in the setting of 1 week of illness and COPD exac. #AHRF in the setting of pneumonia + Rhinovirus + likely COPD exac Patient presented with progressively productive cough, dyspnea at rest and on exertion, tachypnea, found to have focal crackles; initial procalcitonin 12 blood cultures without growth radiographic improvement with interval chest x-ray on 04/19 CBC w/ slight bump in leukocytosis to 14.37, could be from underlying steroids. 2 step completed, patient requires 3L of oxygen at rest & activity. Incentive spirometry and flutter valve every hour while awake Continue chest physiotherapy for assistance with expectoration Maintain oxygen saturation greater than 90% s/p course of azithromycin, continue IV Zosyn through 04/22. #Hypokalemia - resolved K now stable at 3.7 #Costochondritis continue statin chest pain is pleuritic and he has been coughing a lot, R lower intercostals main area of pain tylenol for pain #Tobacco dependence normally smokes 2 ppd, down to 1/2 ppd this past week will give nicotine patch Hold gabapentin as this may be sedating. Will continue chronic medications otherwise. VTE ppx: Lovenox SQ Code: full Discussed w/ CM 04/21. Admission and Anticipated Discharge Date Admission Date: April 17, 2025 Cookie Manuel was seen & examined this morning with his . He reports he is still having a productive cough. Is adamant about returning home today however secondary to the weather he decided that he would stay another night. 2 step completed. Physical Exam Physical Exam: General: NAD, VS: BP 160/77; P97; R23; T36.7C Resp: normal respiratory effort, lungs clear to auscultation CV: RRR, no murmur Extremities: Moves all extremities, no edema Neuro: A&O x3, Skin: intact, no lesions noted Results & Data Results & Data Vital Signs (Past 12 Hours) Vital Signs Temp Pulse Resp BP Pulse Ox O2 Del Method O2 Flow Rate 04/21/25 09:04 36.5 C 103 H 22 148/88 H 94 Nasal Cannula 4 04/21/25 07:23 97 H 18 90 Nasal Cannula 4 04/21/25 01:55 89 19 95 Nasal Cannula 3 PG Care Time/CCT Total # of Minutes Spent Total Time Spent with Patient: Total time spent is greater than 50% in coordination of care (as documented) at patient's floor/unit and/or counseling patient: Coding Level of Care Code 66085 SUB INP/OBS CARE 2/35MIN Diagnoses Acute exacerbation of chronic obstructive pulmonary disease (COPD) J44.1 Pneumonia of right middle lobe due to infectious organism J18.9 Laterality: right Lung location: middle lobe of lung Pneumonia type: due to unspecified organism Primary hypertension I10 Hypertension type: primary hypertension Tobacco use disorder F17.200 (2) Pneumonia Laterality: right Lung location: middle lobe of lung Pneumonia type: due to unspecified organism Qualified Code(s): J18.9 - Pneumonia, unspecified organism (3) Hypertension Hypertension type: primary hypertension Qualified Code(s): I10 - Essential (primary) hypertension
[2025-04-22 06:08] LABS: Hematocrit (blood only) 34.2 % (42.0-52.0); Hemoglobin 11.7 g/dL (14.0-18.0); Mean Corpuscular Hemoglobin 31.7 pg (25.0-34.0); Mean Corpuscular Volume 92.7 fL (80.0-100.0); Platelet Count 326 K/uL (130-400); RDW Standard Deviation 43.7 fL (36.4-46.3); Red Blood Count 3.69 M/uL (4.70-6.10); White Blood Count 13.94 K/ul (4.8-10.8)
[2025-04-22 06:35] LABS: Anion Gap 9.0 (3-11); Blood Urea Nitrogen 13.0 mg/dl (6-23); Calcium 8.2 mg/dl (8.6-10.3); Carbon Dioxide 31.0 mmol/L (21-32); Chloride 99.0 mmol/L (98-107); Creatinine Clr Calc Pharmacy 62.9 ml/min; Glucose 110.0 mg/dl (70-99(Fasting)); Potassium 3.3 mmol/L (3.5-5.1); Sodium 139.0 mmol/L (136-145)
[2025-04-22 08:02] VITALS: BP 149/96; RESP 18; TEMP 98.2
[2025-04-22 08:21] VITALS: PULSE 105; O2SAT 91
--- NOTE | 2025-04-22 08:36 | Discharge Summary ---
Discharge Summary Date of Service April 22, 2025 Principal Dx & Hospital Course #1 = Principal Diagnosis (1) Acute exacerbation of chronic obstructive pulmonary disease (COPD): (2) Pneumonia: (3) Hypertension: (4) Tobacco use disorder: Plan Pt is a 65 yo male with a past med hx of COPD not on oxygen at baseline, YASIR (per records, not on CPAP), HTN and CAD who presents to the hospital on 04/17 for AHRF in the setting of 1 week of illness and COPD exac. #AHRF in the setting of pneumonia + Rhinovirus + likely COPD exac Patient presented with progressively productive cough, dyspnea at rest and on exertion, tachypnea, found to have focal crackles; initial procalcitonin 12 blood cultures without growth radiographic improvement with interval chest x-ray on 04/19 CBC w/ down trending leukocytosis. CRP down trending (14.87 --> 3.77) 2 step completed, patient requires 3L of oxygen at rest & activity. Pt O2 sats >88% & above since 2 step completed. Recommend aggressive incentive spirometer on discharge. s/p course of azithromycin, s/p IV Zosyn. 1 dose of Augmentin on discharge to complete course. Prednisone taper on discharge. #Hypokalemia- K mildly low at 3.3, s/p repletion prior to discharge. #Costochondritis continue statin chest pain is pleuritic and he has been coughing a lot, R lower intercostals main area of pain tylenol for pain #Tobacco dependence normally smokes 2 ppd, down to 1/2 ppd this past week Recommend tobacco cessation. Discharged home on 04/22. Admission HPI Per Admitting Provider Pt is a 65 yo male with a past med hx of COPD not on oxygen at baseline, YASIR (per records, not on CPAP), HTN and CAD who presents to the hospital on 04/17 for AHRF in the setting of 1 week of illness and COPD exac. Pt here with his . Pt fatigued appearing but awake and alert. He states he got sick 1 week ago. His was sick first and then he got sick afterwards. He states it started with cough, congestion with rhinorrhea, nausea, diarrhea, and shortness of breath. Pt states he had a similar episode as today about 1 year ago, which was less severe and he was treated outpatient by the [facility] for pneumonia. His states when he was sleeping tonight he was making noises "like a dog was upchucking" and so she told him he needed to come to the hospital and get evaluated and called 911. Pt states that he has some pain between his lower ribs which is worse with deep breaths. Last episode of d iarrhea was >24 hrs ago. SOB has improved some with therapies given in the ED. No hx AZ or CVA per pt. No alcohol or drug use. He does smoke 2 ppd but the last 1 week as he has been sick he has cut back to 1/2 ppd. Discharge Exam General: NAD, VS: BP 149/96; P105; R18; T36.8C Resp: normal respiratory effort, lungs clear to auscultation CV: RRR, no murmur Extremities: Moves all extremities, no edema Neuro: A&O x3, Skin: intact, no lesions noted Discharge Plan Discharge Items Patient Disposition: Home - Self-Care Reason For Visit: PNEUMONIA, AHRF, COPD Discharge Diagnosis: Pneumonia, COPD exacerbation Condition on Discharge: Fair Activity: Resume your previous activity Non-emergency contact: Primary Care Provider Call non-emergency contact if: you have any medication questions, your symptoms worsen and you have a fever Follow-up/Referrals: Martine Stacy, D.ONoemi [Primary Care Provider] - Diet: Regular Addtl Attending Provider Instructions: Mr. Miner, You were recently hospitalized secondary to flu like symptoms. You were found to have pneumonia, rhinovirus, and a COPD exacerbation. You have been treated with steroids, antibiotics, and supplemental oxygen. On discharge, you are requiring 3L of oxygen at rest and with activity. Please do not use cigarettes while using your oxygen OR around the oxygen tanks. Please also use an incentive spirometer at home to ensure you are practicing deep breathing which will help with your oxygenation saturation. Medications: Your medication list has been reviewed and reconciled upon discharge to ensure accuracy and continuity of care. An updated list of all your medications is included with your hospital discharge paperwork. Please review this list closely, and make note of any changes. Please take 1 tablet of Augmentin this evening. This is the only dose of your antibiotic required on discharge. Please take the steroid taper as directed starting tomorrow, 04/22. Take your medications as instructed; do not skip a dose of your medicines. Make sure all of your doctors know every medicine you are taking (including over-the- counter medicines, vitamins, and supplements). Call your primary care provider before taking any new medicines (including over- the-counter medicines, vitamins, and supplements), because some of these may interact with your current medications, or may make your symptoms worse. Tell your primary care provider if you cannot afford your medications. Activity: You can do normal everyday activities as your body allows. Take rest breaks if you feel tired. Do not overexert. Stop activity if you have pain, shortness of breath or feel dizzy. Follow-up appointments: Make an appointment with your primary care physician within one week of discharge. A copy of this summary will be sent to them. Every time you see your primary care physician, or any other doctor, bring your medication list, and a list of questions. CONTACT YOUR PRIMARY CARE PROVIDER if you experience any of the following: Shortness of breath or difficulty breathing Fevers or chills Feeling tired with normal activity or experiencing dizziness or fainting Difficulty following your treatment plan, or difficulty taking medications CALL 911 OR GO TO THE EMERGENCY DEPARTMENT if you experience any of the following: Severe abdominal pain or nausea/vomiting Severe chest pain, or chest pain that radiates (moves) to your jaw or arm Sudden, severe shortness of breath or difficulty breathing Thank you for allowing us to participate in your care. Pending Studies at Discharge: No Stand-Alone Forms: [facility], Smoking Cessation Medications and DC Order Prescriptions: New amoxicillin-pot clavulanate 875-125 mg tablet 1 tab PO BID Qty: 1 0RF prednisone 10 mg tablet 10 mg PO DIRECTED Qty: 22 0RF Rx Instructions: Please take 4 tabs for 1 day followed by 3 tabs for 3 days followed by 2 tabs for 3 days followed by 1 tab for 3 days Continued baclofen 10 mg tablet 20 mg PO TID bupropion HCl 150 mg tablet sustained-release 12 hr 150 mg PO BID calcium carbonate 200 mg calcium (500 mg) tablet,chewable 400 mg PO BID PRN cyanocobalamin (vitamin B-12) 500 mcg tablet 500 mcg PO DAILY ferrous sulfate 325 mg (65 mg iron) tablet 325 mg PO TID finasteride 5 mg tablet 5 mg PO DAILY gabapentin 600 mg tablet 600 mg PO TID guaifenesin 200 mg tablet 200 mg PO BID nicotine 21 mg/24 hr patch 24 hour 1 patch transdermal DAILY omeprazole 20 mg tablet,delayed release (DR/EC) 20 mg PO BID simvastatin 80 mg tablet 40 mg PO DAILY tiotropium-olodaterol 2.5-2.5 mcg/actuation mist 2 puff inhalation DAILY Discharge Orders: Discharge Order (Routine); Ordered 04/22/25 Ordered By: Carey Murillo Admission Data Admit Date/Time: 04/17/25 06:13 Attending Provider: Keesha Nichols Admit Provider: Maryann Guido Primary Care Provider: Martine Stacy. Other Providers: [facility]; Rodriguez Bernard [facility]; Alvino Mandel Other Interventions: Discharge Summary Assessment (RN) Last Done: 04/22/25 09:46 Hospital Stay Data Consultations 04/17/25 05:06 ED Decision to Admit Stat Pending Results Patient Have Any Pending Studies at Discharge: No Discharge Instructions Given to Patient (Per Discharging Provider) Alexys Cason were recently hospitalized secondary to flu like symptoms. You were found to have pneumonia, rhinovirus, and a COPD exacerbation. You have been treated with steroids, antibiotics, and supplemental oxygen. On discharge, you are requiring 3L of oxygen at rest and with activity. Please do not use cigarettes while using your oxygen OR around the oxygen tanks. Please also use an incentive spirometer at home to ensure you are practicing deep breathing which will help with your oxygenation saturation. Medications: Your medication list has been reviewed and reconciled upon discharge to ensure accuracy and continuity of care. An updated list of all your medications is included with your hospital discharge paperwork. Please review this list closely, and make note of any changes. Please take 1 tablet of Augmentin this evening. This is the only dose of your antibiotic required on discharge. Please take the steroid taper as directed starting tomorrow, 04/22. Take your medications as instructed; do not skip a dose of your medicines. Make sure all of your doctors know every medicine you are taking (including [id number] medicines, vitamins, and supplements). Call your primary care provider before taking any new medicines (including over- the-counter medicines, vitamins, and supplements), because some of these may interact with your current medications, or may make your symptoms worse. Tell your primary care provider if you cannot afford your medications. Activity: You can do normal everyday activities as your body allows. Take rest breaks if you feel tired. Do not overexert. Stop activity if you have pain, shortness of breath or feel dizzy. Follow-up appointments: Make an appointment with your primary care physician within one week of discharge. A copy of this summary will be sent to them. Every time you see your primary care physician, or any other doctor, bring your medication list, and a list of questions. CONTACT YOUR PRIMARY CARE PROVIDER if you experience any of the following: Shortness of breath or difficulty breathing Fevers or chills Feeling tired with normal activity or experiencing dizziness or fainting Difficulty following your treatment plan, or difficulty taking medications CALL 911 OR GO TO THE EMERGENCY DEPARTMENT if you experience any of the following: Severe abdominal pain or nausea/vomiting Severe chest pain, or chest pain that radiates (moves) to your jaw or arm Sudden, severe shortness of breath or difficulty breathing Thank you for allowing us to participate in your care. Total Time Total Time Spent Total Time Spent (In Minutes): 45 Total Time Includes: Examination of the Patient, Discharge Planning and Medication Reconciliation Coding Level of Care Code 09694 INP/OBS DISCH >30 MIN Diagnoses Acute exacerbation of chronic obstructive pulmonary disease (COPD) J44.1 Pneumonia of right middle lobe due to infectious organism J18.9 Laterality: right Lung location: middle lobe of lung Pneumonia type: due to unspecified organism Primary hypertension I10 Hypertension type: primary hypertension Tobacco use disorder F17.200
[2025-04-22] MEDS: POTASSIUM CHLORIDE CRTAB 20 MEQ TABCR PO STA (08:49)
== END 2025-04-22 11:08 | disposition home or self-care (01) | DRG 189 ==
LOC: SUATTDRO → ED 03:44 → EDINP 06:13 → SUATTDRO 06:13 → 2E 08:25